=== PATIENT | female | born 1990 | race Caucasian/White ===

== ENCOUNTER → 2018-12-24 | Outpatient (CLI) | payer BC ==
[2015-04-30 14:40] VITALS: BP 101/54
[~2018-12-24] MED LIST: ALBU2.5V8 IH; NORE-83 PO; OXYC1TAB15 PO
--- NOTE | 2018-12-24 11:45 | RAD ---
Examination: US GUID NDL PLACE/ASPI/BX, US GUID NDL PLACE/ASPI/BX History: Right breast masses. 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 Comparison/Correlation: None Findings: Risks and benefits of ultrasound-guided core biopsy were discussed with the patient. Informed consent was obtained. Preliminary ultrasound imaging of the right breast 9:30 masses was performed. Cleansing with ChloraPrep was performed. Sterile drape and sterile pelvis were placed. Sterile probe and sterile gel utilized. Inferosuperior approach was utilized. Total of 7 cc 1 percent lidocaine was administered along the expected course of the needle track. Incision was made utilizing a scalpel inferior to the 2 masses. Lidocaine was administered with a 25-gauge needle and then with a 22-gauge spinal needle. Introducer was placed. A 12-gauge Bard core biopsy needle was then placed into the introducer and 5 samples were acquired from the more superior, lateral of the 2 masses. Specimens were placed within a formalin jar. Biopsy clip marker was then placed under ultrasound guidance into the mass. Then, another 12-gauge Bard core biopsy needle was utilized to biopsy the more inferomedial mass. 5 passes were made and samples were placed within a separate formalin jar. Biopsy clip marker was placed into the mass. Minimal bleeding was noted but no hematoma identified. The patient tolerated the procedure well without immediate complications. Impression: Successful biopsy of the 2 masses which are adjacent to one another at the right breast 9:30 region. Specimens sent in 2 separate jars to the lab. Electronically signed by: Maxi Guajardo MD (12/24/2018 11:42 AM) [facility]
--- NOTE | 2018-12-24 14:02 | RAD ---
DATE: 12/24/2018 EXAM: DIGITAL DIAGNOSTIC RT HISTORY: The patient has just undergone right upper-outer breast mass biopsies. COMPARISON: 12/06/2018 right unilateral diagnostic mammographic exam and right breast ultrasound This study was interpreted with the benefit of Computerized Aided Detection (CAD). Breast Density: HETERO The breast parenchyma is heterogenously dense, which could reduce sensitivity of mammography. Breast parenchyma level C. FINDINGS: There are 2 biopsy clip markers involving the right upper-outer breast corresponding to the region of mass lesions noted ultrasound exam. No hematoma identified. IMPRESSION: Biopsy clip markers are present in this immediately postbiopsy patient. BI-RADS CATEGORY: 4 SUSPICIOUS ABNORMALITY- BIOPSY SHOULD BE CONSIDERED RECOMMENDED FOLLOW-UP: BIO BIOPSY RECOMMENDED PQRS compliance statement: Patient information was entered into a reminder system with a target due date based on pathology results for the next mammogram. Mammography is a sensitive method for finding small breast cancers, but it does not detect them all and is not a substitute for careful clinical examination. A negative mammogram does not negate a clinically suspicious finding and should not result in delay in biopsying a clinically suspicious abnormality. "Our facility is accredited by the [employer] Mammography Program."
--- NOTE | 2018-12-25 16:07 | PATHOLOGY ---
[facility] Accession Number: [id number] . 01 Material submitted: . PART A: breast - RIGHT BREAST TISSUE, SUPERIOR LESION. Modifiers: right, superior PART B: breast - RIGHT BREAST TISSUE, INFERIOR LESION. Modifiers: right, inferior . 01 Clinical history: . A. Right breast biopsy, 930, 3 cm from nipple, superior lesion B. Right breast tissue, 930, 3 cm, from nipple, inferior lesion . 02 Diagnosis: A. Breast tissue, right breast mass 9:30 superior lesion: - Fibroadenoma. . B. Breast tissue, right breast mass 9:30 inferior lesion: - Fibroadenoma. . (JPM:darryl; 12/25/2018) MBR/12/25/2018 . 02 Comment: There is no evidence of malignancy. (GENAM:darryl; 12/25/2018) . 02 Electronically signed: . Ramon Schaefer MD, Pathologist NPI- [id number] . 01 Gross description: . A. The specimen is received in formalin, labeled "Kamilla Alexandra, right breast, 930, 3 cm from nipple, superior lesion",are few fibrofatty cores and its fragments measuring 1.5 x 0.5 x 0.4 cm in aggregate, the specimen is entirely submitted in A1-A3. The specimen was excised at: 1033 on 12/24/18, placed in formalin at: 1038 on 12/24/18, formalin exposure: Approximately 13 hours. . B. The specimen is received in formalin, labeled "Kamilla Alexandra, right breast, 930, 3 cm from nipple, inferior lesion", are few fibrofatty cores measuring 1.4 x 0.8 x 0.3 cm in aggregate, entirely submitted in B1-B3. . The specimen was excised at: 1048 on 12/24/18, placed in formalin at:1054 on 12/24/18, formalin exposure: Approximately 13 hours and 46 minutes. (SWS; 12/24/2018) SHS/SHS . 02 Pathologist provided ICD-10: D24.1 . 02 CPT . 259748, [id number] Specimen Comment: A courtesy copy of this report has been sent to Specimen Comment: [phone], , . Specimen Comment: Report sent to ,DR KUMAR / DR CHUN Performed at: 01 [facility] [address], [place] [id number] MD Quintin Miranda MD Phone: [phone] Performed at: 02 [facility] [address] [place], [place] [id number] MD Ramon Schaefer MD Phone: [phone]
== END | disposition home or self-care (01) ==
LOC: US 08:30
PROVIDERS: ATTEND Physician Assistant
DX: D24.1 Benign neoplasm of right breast (principal)
CPT/HCPCS: 19083; 19084; 77065; 88305; C1713; 19081; 76942